=== PATIENT | male | born 1940 | race Two or more races ===

== ENCOUNTER → 2016-09-01 | Outpatient (CLI) | payer MEDICARE, OTHER ==
[~2016-09-01] MED LIST: ASPI-496 PO; LOSA50TA6 PO; SIMV40TA3 PO
== END | disposition home or self-care (01) ==
LOC: CARD 09:34
PROVIDERS: ATTEND Internal Medicine
DX: I25.10 Atherosclerotic heart disease of native coronary artery without angina pectoris (principal); Z95.5 Presence of coronary angioplasty implant and graft
CPT/HCPCS: 93017; 93350

== ENCOUNTER 2017-05-30 12:24 | Inpatient (IN) | payer MEDICARE, OTHER ==
[~2017-05-30] VITALS: Ht 170.2 cm; Wt 91.1 kg
[2017-05-30] MEDS ORDERED: SODIUM CHLORIDE FLUSH 10ML SYR IVF ONE (13:30)
[2017-05-30] MEDS ORDERED: SODIUM CHLORIDE 0.9% 1,000ML IVBOLUS ONE (13:30)
[2017-05-30] MEDS ORDERED: ONDANSETRON 2MG/ML, 2ML IVPush ONE (13:30)
[2017-05-30] MEDS ORDERED: HYDROmorphone 2 MG/ML, 1ML ONE (13:43)
[2017-05-30] MEDS ORDERED: ONDANSETRON 2MG/ML, 2ML ONE (13:44)
[2017-05-30] MEDS: HYDROmorphone 1 MG/ML, 1ML IVPush PRN ×2 (13:47→17:54)
[2017-05-30 13:52] LABS: BASOPHILS # (AUTO) 0.01 x10^3/uL (0-0.1); BASOPHILS % (AUTO) 0 % (0-1); EOSINOPHILS % (AUTO) 0 % (1-7); LYMPHOCYTES # (AUTO) 1.68 x10^3/uL (1-3.4); LYMPHOCYTES % (AUTO) 11 % (22-44); MD NO; MEAN CORPUSCULAR HEMOGLOBIN 28.6 pg (27.5-34.5); MEAN CORPUSCULAR HGB CONC 33.1 g/dL (33.2-36.2); MEAN CORPUSCULAR VOLUME 86.5 fL (81-97); MEAN PLATELET VOLUME 8.9 fL (7.4-10.4); MONOCYTES # (AUTO) 1.35 x10^3/uL (0.2-0.8); MONOCYTES % (AUTO) 9 % (2-9); NEUTROPHILS # (AUTO) 11.71 x10^3/uL (1.8-6.8); NEUTROPHILS % (AUTO) 79 % (42-75); PLATELET COUNT 143 x10^3/uL (130-400); RED BLOOD COUNT 4.77 x10^6/uL (4.38-5.82); RED CELL DISTRIBUTION WIDTH 13.2 % (9.4-14.8)
[2017-05-30 13:56] LABS: MICROSCOPIC AUTO
[2017-05-30 13:57] LABS: CULTURE INDICATED? NO
[2017-05-30 14:04] LABS: ALBUMIN 3.6 g/dL (3.4-5.0); ANION GAP 5 mmol/L (5-15); CALCIUM 9.2 mg/dL (8.5-10.1); CHLORIDE 101 mmol/L (98-107)
[2017-05-30 14:08] LABS: ALANINE AMINOTRANSFERASE 28 U/L (12-78); ALKALINE PHOSPHATASE 74 U/L (45-117); BILIRUBIN,TOTAL 1.1 mg/dL (0.2-1.0); CREATININE 1.32 mg/dL (0.7-1.3)
[2017-05-30] MEDS ORDERED: HYDROmorphone 2 MG/ML, 1ML IVPush PRN (17:00)
[2017-05-30] MEDS ORDERED: ENOXAPARIN 40 MG/0.4 ML SQ SCH (17:00)
[2017-05-30] MEDS ORDERED: DOCUSATE 100 MG CAPSULE PO PRN (17:00)
[2017-05-30] MEDS ORDERED: ONDANSETRON 2MG/ML, 2ML IVPush PRN (17:00)
[2017-05-30] MEDS ORDERED: OXYcodone IR 5MG TABLET PO PRN (17:00)
[2017-05-30] MEDS ORDERED: ACETAMINOPHEN 325 MG TABLET PO PRN (17:00)
[2017-05-30] MEDS: D5%-0.45% NACL 1,000 ML IV SCH (18:01)
[2017-05-30 18:18] VITALS: BP 155/74
[2017-05-30 18:59] VITALS: BP 110/55
[2017-05-30] MEDS: FAMOTIDINE 20 MG/2 ML IVPush SCH (21:13)
[2017-05-31 02:33] VITALS: BP 117/61
[2017-05-31] MEDS: D5%-0.45% NACL 1,000 ML IV SCH ×2 (03:30→13:23)
[2017-05-31 05:29] LABS: CHLORIDE 105 mmol/L (98-107)
[2017-05-31 05:48] LABS: ALANINE AMINOTRANSFERASE 19 U/L (12-78); ALBUMIN 2.9 g/dL (3.4-5.0); ALKALINE PHOSPHATASE 57 U/L (45-117); ANION GAP 9 mmol/L (5-15); CALCIUM 8.3 mg/dL (8.5-10.1); CHOL/HDL RATIO 2.5; CHOLESTEROL, TOTAL 104 mg/dL (140-239); CREATININE 1.29 mg/dL (0.7-1.3); HDL CHOL % 39 % (26-37); HDL CHOLESTEROL (DIRECT) 41 mg/dL (40-60); LDL CHOLESTEROL,CALCULATED 49 mg/dL (54-169); LDL/HDL RATIO 1.2 (0.5-3.0); TOTAL PROTEIN 6.8 g/dL (6.4-8.2); TRIGLYCERIDES 72 mg/dL (50-200); VLDL CHOLESTEROL 14 mg/dL (0-25)
[2017-05-31 07:47] VITALS: BP 107/58
[2017-05-31] MEDS: FAMOTIDINE 20 MG/2 ML IVPush SCH (08:15)
[2017-05-31 13:57] VITALS: BP 126/66
[2017-05-31] MEDS ORDERED: HYDR-3342 PO (16:48)
[2017-05-31] MEDS ORDERED: TRAM1TAB6 PO (16:52)
== END 2017-05-31 18:59 | disposition home or self-care (01) | DRG 438 ==
LOC: ED 16:29 → EDIP 16:30 → SUATTDRO 16:46 → 3NE 17:28
PROVIDERS: ADMIT Family Medicine; ATTEND Internal Medicine
DX: K85.90 Acute pancreatitis without necrosis or infection, unspecified (principal); N17.0 Acute kidney failure with tubular necrosis; E87.1 Hypo-osmolality and hyponatremia; E78.5 Hyperlipidemia, unspecified; I25.10 Atherosclerotic heart disease of native coronary artery without angina pectoris; I10 Essential (primary) hypertension; Z80.42 Family history of malignant neoplasm of prostate; Z86.010 Personal history of colon polyps; Z87.442 Personal history of urinary calculi; Z95.5 Presence of coronary angioplasty implant and graft
CPT/HCPCS: 36415; 74176; 80053; 80061; 81001; 83605; 83690; 85025; 87040; 96361; 96374; J1170; J1650; J2405; J7030; S0028

== ENCOUNTER 2019-06-08 08:23 | Outpatient (CLI) | payer MEDICARE, OTHER ==
[~2019-06-08 08:23] MED LIST changes: +HYDR-3342 PO; +LOSA50TA14 PO; -LOSA50TA6 PO; +TRAM1TAB6 PO
== END 2019-06-08 23:59 | disposition home or self-care (01) ==
LOC: CFH 08:23
PROVIDERS: ATTEND Internal Medicine Cardiovascular Disease
DX: I10 Essential (primary) hypertension (principal); Z95.5 Presence of coronary angioplasty implant and graft; Z86.718 Personal history of other venous thrombosis and embolism
CPT/HCPCS: 78452; 93017; A9502

== ENCOUNTER 2019-09-24 14:38 | Emergency (ER) | payer MEDICARE, OTHER ==
[~2019-09-24] VITALS: Ht 170.2 cm; Wt 90.5 kg
[~2019-09-24 14:38] MED LIST changes: +SIMV40TA20 PO; -SIMV40TA3 PO
--- NOTE | 2019-09-24 15:00 | NUR ---
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
[2019-09-24] MEDS ORDERED: LIDOCAINE 2%, 10ML INFIL ONE (15:30)
[2019-09-24] MEDS ORDERED: LIDOCAINE 1%-EPI 1:100K, 20ML ONE (15:39)
--- NOTE | 2019-09-24 16:13 | NUR ---
PT IN CT, WOUND CLEANED
--- NOTE | 2019-09-24 16:21 | NUR ---
PT BACK FROM CT AND RESTING IN ROOM. NO ACUTE DISTRESS NOTED. CALL LIGHT IN PLACE. WILL CONTINUE TO MONITOR.
--- NOTE | 2019-09-24 16:30 | NUR ---
EDWARD ISRAEL IN ROOM UPDATING PATIENT.
--- NOTE | 2019-09-24 16:44 | NUR ---
DEWARD KIMBROUGH IN ROOM DOING SUTURES
[2019-09-24] MEDS ORDERED: NEOSPORIN OINT. PKT 1 PACKET ONE (16:50)
[2019-09-24 16:57] VITALS: BP 145/65
== END 2019-09-24 16:59 | disposition home or self-care (01) ==
LOC: ED 16:25
DX: S01.01XA Laceration without foreign body of scalp, initial encounter (principal); I10 Essential (primary) hypertension; E78.00 Pure hypercholesterolemia, unspecified; E78.5 Hyperlipidemia, unspecified; Z98.61 Coronary angioplasty status; W18.39XA Other fall on same level, initial encounter; Y93.89 Activity, other specified; Y92.009 Unspecified place in unspecified non-institutional (private) residence as the place of occurrence of the external cause; Y99.8 Other external cause status
CPT/HCPCS: 12014; 70450; 99284; J2001

== ENCOUNTER → 2019-11-22 | Outpatient (CLI) | payer MEDICARE, OTHER | END | disposition home or self-care (01) | LOC: CFH 13:34 | PROVIDERS: ATTEND Internal Medicine Cardiovascular Disease | DX: I35.0 Nonrheumatic aortic (valve) stenosis (principal); I10 Essential (primary) hypertension | CPT/HCPCS: 93306 ==